=== PATIENT | male | born 1970 | race Caucasian/White ===

== ENCOUNTER → 2019-11-20 | Outpatient (CLI) | payer BC ==
[~2019-11-20] MED LIST: BISO5TAB8 PO
--- NOTE | 2019-11-20 20:37 | PAIN ---
DATE OF SERVICE: 11/20/2019 INITIAL CONSULTATION FOR PAIN CLINIC CHIEF COMPLAINT: Low back and right lower extremity pain. HISTORY OF PRESENT ILLNESS: This is a 49-year-old male who presents with history of pain in the low back, right lower extremity for about 4 months, occurring fairly suddenly, but not a result of any specific injury or action that he is aware of. The patient reports it has been in the low back, right posterior gluteus, posterolateral thigh, lateral anterior thigh, anterior medial thigh, medial knee and into the medial and lateral lower leg on the right side only. The patient reports it is across the low back at times and mostly just in the leg. The patient reports it is shooting in the right leg, tingling with pins and needles as well into the thigh, but not into the foot. The patient reports it is worse with walking, standing, changing positions, sitting for prolonged periods. It is waking him from sleep about 4-5 times a night, does not affect his bowel or bladder control, but does affect his ability to walk significantly. He is not using any assistive devices currently, but has used a cane in the recent past when it was worse, at work. The patient has been taking Aleve frequently, the patient reports, sometimes 5-6 times a day, but has not had any other current therapies, physical therapies, chiropractic treatments or other modalities of treatment for the pain at this time. The patient did have MRI scan of the lumbar spine showing diffuse disk bulges at L4-L5 and L5-S1 with mild degenerative changes, minimal disk bulge and mild facet hypertrophy. L3-L4, L4-L5 shows diffuse disk bulge, [id number] facet ligamentum flavum hypertrophy with minimal left foraminal narrowing and diffuse disk bulge, L5-S1 with mild bilateral foraminal narrowing. The patient rates his disability range 0-10, 10 being the worst, is an 8 with family home responsibilities, recreation, social activity; 9 with occupation and sexual behavior; 6 with self-care and 8 with life support activities. PAST MEDICAL HISTORY: Significant for hearing loss and arthritis. PREVIOUS SURGERY: Include a left knee surgery for reconstruction, right knee surgery and tonsillectomy. CURRENT MEDICATIONS: Include bisoprolol daily and naproxen. ALLERGIES: The patient has no known drug allergies. FAMILY HISTORY: Significant for no major medical problems or conditions except for some low back pain in the patient's father and lumbar surgery in the patient's father. SOCIAL HISTORY: The patient does not drink alcohol, does not smoke, does use chewing tobacco for 30+ years. Does not use any illegal, illicit or recreational drugs. He is , lives with his spouse. Lives locally in [place], [place]. Works for the local [employer]. REVIEW OF SYSTEMS: The patient's review of systems is positive for those items mentioned in history of present illness. All systems reviewed and otherwise negative. It is complete, full and well documented on the patient's chart. PHYSICAL EXAMINATION: VITAL SIGNS: The patient's blood pressure is 132/103, pulse 80, respirations 18, temperature 98.3 degrees Fahrenheit, height 6 feet 2 inches, weight is 270 pounds. GENERAL: The patient is awake, alert, oriented, appropriate, very pleasant demeanor. HEENT: Normocephalic, atraumatic. Extraocular movements are intact and symmetrical. Oral cavity: Mucous membranes moist and pink. Dentition is intact. NECK: Shows anterior throat supple without palpable lymphadenopathy noted. Swallow reflex symmetrical. CHEST: Shows normal on inspection. Breath sounds are clear to auscultation bilaterally. HEART: Shows S1, S2 clear. No murmurs auscultated. ABDOMEN: Soft, nontender, nondistended. No palpable organomegaly is noted. No rebound or guarding demonstrated. BACK: Shows spine grossly in the midline. Normal appearing thoracic kyphosis, some minor flattening of lumbar lordotic curvature. Lumbar paraspinous muscle shows symmetrical on inspection, on palpation shows some moderate tenderness diffusely bilaterally going diffusely without significant radiation. The patient has good rotational motion of lumbar spine, both laterally as well as extension and flexion without significant difficulty. No tenderness over the spinous processes, sacrum or sacroiliac regions. The patient shows good rotational motion laterally as well as extension and flexion without difficulty. EXTREMITIES: Lower extremities show deep tendon reflexes 2+ in the patellar, 1+ tendo-calcaneus tendons. Motor exam is strong with 5/5 dorsiflexion, extension, quadriceps and hamstring flexion on the right and 4/5 with quadriceps and hamstring flexion on the left, but 5/5 quadriceps dorsiflexion, extension on the left. Peripheral pulses are 1+ posterior tibia. No peripheral edema is noted bilaterally. The patient is able to stand, stand on his toes without significant difficulty or loss of balance, walks with normal appearing gait, does not appear to favor the right or left lower extremity significantly for short distance in the office, not using any assistive devices to ambulate as well. SKIN: The patient's skin shows warm and dry, good turgor. No edema. No sores, rashes or bruising throughout. IMPRESSION: 1. This is a 49-year-old male with approximately 4-month history of low back and right lower extremity pain in a radicular fashion. 2. MRI scan of lumbar spine as noted. 3. History of arthritis. PLAN: Options were discussed with the patient including conservative medical management, physical therapy, interventional techniques. He would like to pursue interventional techniques. We discussed a lumbar epidural steroid using description as well as anatomical models to describe the procedure. The patient will wait for his work schedule to be more amenable to, as he is going to work right after his visit today where he does not have to attend work right after the injection. We will try Medrol Dosepak in the meantime. The patient was given instruction as well as side effects to be aware of with the medication. The patient will follow up in approximately 2 weeks as scheduled for lumbar epidural steroid injection at that time. BHARAT PARRISH MD DR: RAJ/orquidea JOB#: [id number] / [id number] ADELSO Ham MD
== END | disposition home or self-care (01) ==
LOC: PNCL 12:25
PROVIDERS: ATTEND Anesthesiology
DX: M54.16 Radiculopathy, lumbar region (principal); M19.90 Unspecified osteoarthritis, unspecified site; Z72.0 Tobacco use
CPT/HCPCS: G0463

== ENCOUNTER → 2019-12-04 | Outpatient (CLI) | payer BC ==
[~2019-12-04] MED LIST changes: +BUPR150T8 PO; +IOHEXOL 180 MG/ML 10 ML VIAL. ONE; +methylPREDNISolone ACETATE 40 MG/ML VIAL. ONE; +methylPREDNISolone ACETATE 80 MG/ML VIAL. ONE
--- NOTE | 2019-12-05 02:19 | PAIN ---
DATE OF SERVICE: 12/04/2019 PROGRESS NOTE FOR PAIN CLINIC DIAGNOSIS: Lumbar radiculopathy with lumbar degenerative disk disease. HISTORY OF PRESENT ILLNESS: The patient is a 49-year-old male who returns for followup status post initial evaluation and the patient returns today wishing to proceed with the procedure. The patient was working after his last visit and we waited until he was able to be off work and not traveling today and he returns today with still significant pain in low back, right lower extremity significantly better with the Medrol Dosepak but only for the first few days. The patient reports his pain is now a 10 on a scale of 10 at its worst over the past week, 8 on average, 7 at its least and is a 7 today. The patient reports it is sharp and tingling, burning, radiating to the right lower extremity, lateral thigh, anterior thigh, medial thigh, groin and medial lower leg as well as across the low back. The patient reports no new motor or sensory deficits, no new bowel or bladder incontinence or other complaints. PHYSICAL EXAMINATION: VITAL SIGNS: The patient's blood pressure 142/97, pulse 70, respirations 16, temperature 98.0 degrees Fahrenheit, height is 6 feet 3 inches and weight is 268 pounds. GENERAL: The patient is awake, alert, oriented, appropriate, very pleasant demeanor. HEENT: Head shows normocephalic, atraumatic. Extraocular movements are intact and symmetrical. Oral cavity: Mucous membranes moist and pink. Dentition is intact. NECK: Shows anterior throat supple without palpable lymphadenopathy noted. Swallow reflex symmetrical. CHEST: Shows normal on inspection. Breath sounds clear to auscultation bilaterally. HEART: Shows S1, S2 clear. No murmurs auscultated. ABDOMEN: Soft, nontender, nondistended. No palpable organomegaly is noted. No rebound or guarding demonstrated. BACK: Shows spine grossly in the midline. Normal appearing thoracic kyphosis and lumbar lordotic curvature. Lumbar paraspinous muscle shows symmetrical on inspection, on palpation shows some moderate tenderness diffusely bilaterally going diffusely without significant radiation in the low lumbar distribution. The patient shows full rotational motion of lumbar spine laterally as well as extension and flexion without significant pain reported. EXTREMITIES: Lower extremities show deep tendon reflexes 2+ in the patellar, 1+ tendo-calcaneus tendons. Motor exam is approximately 4 on a scale of 5 with right dorsiflexion, 5/5 on the left. Peripheral pulses are 1+ posterior tibia. No peripheral edema. Options were discussed with the patient. The patient's old chart was reviewed as his current medication regimen updated. Current review of systems updated today as well. We will proceed with a lumbar epidural steroid injection today with the first in this series with fluoroscopic guidance. Risks were again discussed including, but not limited to bleeding, infection, possibility of epidural hematoma, subsequent neurological compromise, dural puncture, headaches, spinal cord and/or nerve damage, side effects of steroid medication and poor results regarding pain control. The patient understands and wished to proceed. The patient will return to clinic in approximately 2 weeks for followup. He was counseled on return appointment, activity level and side effects to be aware of. DIAGNOSIS: Lumbar radiculopathy with lumbar degenerative disk disease. PROCEDURE: Lumbar epidural steroid injection, translaminar approach L4-L5 level using C-arm fluoroscopic guidance under sterile prep and drape using local anesthetic. MEDICATION INJECTED: A total of 120 mg Depo-Medrol plus 10 mL of preservative-free normal saline and 2 mL of contrast. CONDITION AT DISCHARGE: Stable. The patient tolerated procedure well, had no complications. BHARAT PARRISH MD DR: RAJ/orquidea JOB#: [id number] / [id number]
== END ==
LOC: PNCL 09:02
PROVIDERS: ATTEND Anesthesiology
DX: M51.16 Intervertebral disc disorders with radiculopathy, lumbar region (principal)
CPT/HCPCS: 62323; J1030; J1040; Q9965

== ENCOUNTER → 2019-12-18 | Outpatient (CLI) | payer BC ==
[~2019-12-18] MED LIST changes: -IOHEXOL 180 MG/ML 10 ML VIAL. ONE; -methylPREDNISolone ACETATE 40 MG/ML VIAL. ONE; -methylPREDNISolone ACETATE 80 MG/ML VIAL. ONE
--- NOTE | 2019-12-18 12:19 | PAIN ---
DATE OF SERVICE: PROGRESS NOTE FOR PAIN CLINIC DIAGNOSES: Lumbar radiculopathy with lumbar degenerative disk disease. HISTORY OF PRESENT ILLNESS: The patient is a 49-year-old male who returns for followup status post lumbar epidural steroid injection x 1. On 12/04/2019, the patient reports he did very well, 100% improved in the low back and right lower extremity pain and very minimal pain in the leg or the back. The patient reports he rates his pain as a 0 on a scale of 10 on average, worst at least over the past several weeks. The patient is very pleased with his progress and increased in activity with greater distance walking, doing work activities, household activities, traveling with greater ease and comfort. The patient is very pleased. He is sleeping better at night, does not awaking from sleep at night. The patient reports no new motor or sensory deficits, has some bit of tingling and burning in the leg, but only very minimal and only lasting for a very short period of time, less than a minute when he is first getting up for walking. The patient reports no other complaints. PHYSICAL EXAMINATION: VITAL SIGNS: The patient's blood pressure 146/103, pulse 83, respirations 18, temperature 97.7 degrees Fahrenheit, height is 6 feet 2 inches, weight is 273 pounds. GENERAL: The patient is awake, alert, oriented, appropriate, very pleasant demeanor. HEENT: Normocephalic, atraumatic. Extraocular movements are intact and symmetrical. Oral cavity: Mucous membranes moist and pink. Dentition is intact. NECK: Shows anterior throat supple without palpable lymphadenopathy noted. Swallow reflex symmetrical. CHEST: Shows normal on inspection. Breath sounds are clear bilaterally. HEART: Shows S1, S2 clear. No murmurs auscultated. ABDOMEN: Soft, nontender, nondistended. No palpable organomegaly is noted. BACK: Shows spine grossly in midline. Lumbar paraspinous muscle shows symmetrical on inspection, on palpation shows some mild tenderness, but only very minimal in the low lumbar distribution. Full rotational motion is demonstrated both laterally as well as extension and flexion of lumbar spine without difficulty or pain reported. No tenderness over the sacrum and sacroiliac regions or the spinous processes. EXTREMITIES: Lower extremities show deep tendon reflexes 2+ in patella, 1+ tendo calcaneus tendons. Motor exam is approximately 4 on a scale 5 on the right with dorsiflexion, extension, but 5/5 on the left. Quadriceps and hamstring flexion 5/5 and symmetrical. Options were discussed with the patient. The patient's old chart was reviewed. His current medication regimen updated. Current review of systems updated today as well. We will hold on any further injections at this time as the patient is doing quite a bit better, encouraged him to increase his activity as tolerated, maintain stretching and strengthening exercises and daily activities. The patient will return to clinic at this time on as needed basis. BHARAT PARRISH MD DR: RAJ/orquidea JOB#: [id number] / [id number]
== END | disposition home or self-care (01) ==
LOC: PNCL 07:59
PROVIDERS: ATTEND Anesthesiology
DX: M51.16 Intervertebral disc disorders with radiculopathy, lumbar region (principal)
CPT/HCPCS: G0463

== ENCOUNTER → 2019-12-29 | Outpatient (CLI) | payer BC ==
[~2019-12-29] MED LIST changes: +IOHEXOL 180 MG/ML 10 ML VIAL. ONE; +methylPREDNISolone ACETATE 40 MG/ML VIAL. ONE; +methylPREDNISolone ACETATE 80 MG/ML VIAL. ONE
--- NOTE | 2019-12-29 12:40 | PAIN ---
DATE OF SERVICE: PROGRESS NOTE FOR PAIN CLINIC DIAGNOSES: Lumbar radiculopathy, lumbar degenerative disk disease. HISTORY OF PRESENT ILLNESS: The patient is a 49-year-old male who returns for followup status post lumbar epidural steroid injection x 1. The patient reports 100% improvement. We have seen him back earlier this month with 100% improvement and the patient was doing very well. The patient reports that since that time, he has been helping his mother move some large items on the digging area post-hole or stump out and has had increased pain in the low back, right lower extremity, returning not nearly to baseline, but it has been returning in the low back and the right leg with some numbness and tingling, especially on the right kneecap and anterior thigh. The patient reports it is across the low back as well, but always on the right side. The patient reports it is an 8-9 on a scale of 10, at its worst over the past week, 5-8 on average, 5 at its least and is a 5 today. The patient reports aching, sharp, burning in the back and the right leg, tingling and numbness in the knee; however, it is not keeping him from sleep at night, most nights, does not awaking at some night. The patient reports no new motor or sensory deficits, no new bowel or bladder incontinence. PHYSICAL EXAMINATION: VITAL SIGNS: The patient's blood pressure 151/112, pulse 90, respirations 18, temperature 98.5 degrees Fahrenheit, weight is 265 pounds. GENERAL: The patient is awake, alert, oriented, appropriate, very pleasant demeanor. HEENT: Shows normocephalic, atraumatic. Extraocular movements are intact and symmetrical. Oral cavity: Mucous membranes moist and pink. Dentition is intact. NECK: Shows anterior throat supple without palpable lymphadenopathy noted. Swallow reflex symmetrical. CHEST: Normal inspection. Breath sounds clear to auscultation bilaterally. HEART: Shows S1, S2 clear. No murmurs auscultated. ABDOMEN: Soft, nontender, nondistended. BACK: Shows spine grossly in the midline. Lumbar paraspinous muscle shows symmetrical with inspection, with palpation shows some very mild tenderness in the low lumbar distribution only without radiation. The patient has full rotational motion of lumbar spine, both laterally as well as extension and flexion without difficulty. EXTREMITIES: Lower extremities show deep tendon reflexes 2+ in the patellar, 1+ tendo calcaneus tendons. Motor exam is approximately 4 on a scale of 5 on the right with dorsiflexion and extension, 5/5 on the left. Peripheral pulses are 1+ posterior tibia. No peripheral edema is noted bilaterally. Options were discussed with the patient. The patient's old chart was reviewed as his current medication regimen updated. Current review of systems updated today as well. We will proceed with a second in the series of lumbar epidural steroid injection today with fluoroscopic guidance. Risks were again discussed including, but not limited to bleeding, infection, possibility of epidural hematoma, subsequent neurological compromise, dural puncture, headaches, spinal cord and/or nerve damage, side effects of steroid medication and poor results regarding pain control. The patient understands and wished to proceed. The patient will return to clinic in approximately 2 weeks for followup. He was counseled on return appointment, activity level and side effects to be aware of. DIAGNOSES: Lumbar radiculopathy, lumbar degenerative disk disease. PROCEDURE: Lumbar epidural steroid injection, translaminar approach at L4-L5 level using C-arm fluoroscopic guidance under sterile prep and drape using local anesthetic. MEDICATION INJECTED: A total of 120 mg Depo-Medrol plus 10 mL of preservative-free normal saline and 2 mL of contrast. CONDITION AT DISCHARGE: Stable. The patient tolerated procedure well, had no complications. BHARAT PARRISH MD DR: RAJ/orquidea JOB#: [id number] / [id number]
== END ==
LOC: PNCL 09:47
PROVIDERS: ATTEND Anesthesiology
DX: M51.16 Intervertebral disc disorders with radiculopathy, lumbar region (principal)
CPT/HCPCS: 62323; J1030; J1040; Q9965

== ENCOUNTER → 2020-06-02 | Outpatient (CLI) | payer BC ==
--- NOTE | 2020-06-02 08:25 | PDOC ---
Progress Note - Pain Clinic Date of Service: DOS: DATE: 06/02/20 TIME: 08:22 Diagnosis: Dx: Lumbar radiculopathy with lumbar degenerative disc disease History or Present Illness: HPI: 49-year-old male returns follow-up status post lumbar epidural to injections x2 last seen December 29, 2019. Patient reports about 80 to 90% improvement after the last injection patient reports no new motor or sensory deficits no new bowel or bladder con's with the pain is returning down the low back and right lower extremity posterior gluteus posterior thigh lateral thigh anterior thigh medial thigh medial lower leg with walking standing changing positions. Patient re ports is aching and sharp shooting burning stabbing severe at times and unbearable at times with weightbearing better with sitting or laying down generally does not awaken her from sleep at night. Patient worst pain is at 8- 10 on scale of 10 is worst 8-10 on average and a 7-8 at its least as an 8 today. Work no new motor or sensory deficits no new bowel or bladder incontinence or other complaints. Physical Exam: VS: Blood pressure 147/114 pulse 84 respiration 16 temperature 97.9 F height is 6 foot 3 inches weight is 26 7 pounds PE: PHYSICAL EXAMINATION: GENERAL: The patient is awake, alert, oriented, appropriate, very pleasant demeanor HEENT: Shows normocephalic, atraumatic. Extraocular movements are intact and symmetrical. Oral cavity: Mucous membranes moist and pink. Dentition is intact. NECK: Shows anterior throat supple without palpable lymphadenopathy noted. Swallow reflex symmetrical. CHEST: Shows normal on inspection. Breath sounds are clear bilaterally, no rales rhonchi or wheezes auscultated. HEART: Shows S1, S2 clear. No murmurs auscultated. ABDOMEN: Soft, nontender, nondistended. No palpable organomegaly is noted. No rebound or guarding demonstrated. BACK: Shows spine grossly in the midline. Normal-appearing cervical lordotic curvature. There is slightly increased thoracic kyphosis, some minor flattening of the lumbar lordotic curvature. Lumbar paraspinous muscles show symmetrical on inspection, on palpation shows some moderate tenderness diffusely throughout the upper, middle and lower distribution of the paraspinous muscles bilaterally without specific trigger points, without radiation of pain. The patient has good rotational motion of the lumbar spine, both laterally as well as extension and flexion without significant difficulty. No tenderness over the spinous processes, sacrum or sacroiliac regions. EXTREMITIES: Lower extremities show deep tendon reflexes 2+ in the patellar and tendo calcaneus tendons. Motor exam is 5 on a scale of 5 with right dorsiflexion, extension, quadriceps and hamstring flexion and 5/5 on the left. Peripheral pulses are 1+ posterior tibial. No peripheral edema is noted bilaterally. Lower extremities are warm and dry to touch, equal in color and appearance. SKIN: Shows warm and dry, good turgor. No edema. No sores, rashes or bruising throughout. Procedure: Procedure: Options were discussed with the patient. Patient chart was reviewed his current medication regimen updated current review of systems updated today as well. We will proceed with a third in a series lumbar epidural steroid injection with fluoroscopic guidance risk were again discussed including but not limited to bleeding infection possibility of epidural hematoma subsequent neurological compromise dural puncture headache spinal cord and or nerve damage side effects of steroid medication and portals chronic pain control. Patient understands wished to proceed. Return to clinic in approximate 2 weeks for follow-up was counseled as to return appointment activity level and side effects be aware of. Medication Injected: Med Injected: Procedure is lumbar epidural steroid injection under local anesthetic using sterile prep and drape at the L4-5 level using C-arm fluoroscopic guidance in both AP and lateral views medications injected is 120 mg Depo-Medrol + 10 mL preservative-free normal saline and 2 mL for contrast- condition at discharge is stable patient tolerated procedure well had no complications. Condition at Discharge: Condition at Discharge: Condition at discharge stable patient tolerated procedure well had no complications BHARAT PARRISH MD Jun 02, 2020 08:25
== END | disposition home or self-care (01) ==
LOC: PNCL 07:28
PROVIDERS: ATTEND Anesthesiology
DX: M51.16 Intervertebral disc disorders with radiculopathy, lumbar region (principal)
CPT/HCPCS: 62323; J1030; J1040; Q9965

== ENCOUNTER → 2020-09-16 | Outpatient (CLI) | payer BC ==
--- NOTE | 2020-09-16 08:18 | PDOC ---
Progress Note - Pain Clinic Date of Service: DOS: DATE: 09/16/20 TIME: 08:15 Diagnosis: Dx: Lumbar radiculopathy with lumbar degenerative disc disease History or Present Illness: HPI: 50-year-old male returns follow-up status post lumbar epidural steroid injections x3. Patient last seen June 02, 2020 patient did very well about 75 to 80% improvement for several weeks following the injection. Patient reports pain is been returning now in the low back and right lower extremity posterior gluteus posterior thigh lateral thigh anterior thigh anterior medial thigh medial lower leg as well patient reports initially was doing much better with distance walking doing household activities working with greater ease and comfort travel with greater ease now reports the pain is returning in the low back and right leg described as aching sharp shooting in the leg burning in the low back can be severe and unbearable at times with extended walking and standing. Patient reports it generally does not awaken her from sleep at night better with sitting or laying down patient reports his pain is a 10 on scale 10 is worse over the past week 8 on average 8 at its least and is a 9 today. Reports no new motor or sensory deficits no new bowel or bladder con's or other complaints. Physical Exam: VS: Blood pressure is 160/107 pulse is 77 respirations are 16 temperature is 98.3 F weight is 277 pounds PE: PHYSICAL EXAMINATION: GENERAL: The patient is awake, alert, oriented, appropriate, very pleasant demeanor HEENT: Shows normocephalic, atraumatic. Extraocular movements are intact and symmetrical. Oral cavity: Mucous membranes moist and pink. NECK: Shows anterior throat supple without palpable lymphadenopathy noted. Swallow reflex symmetrical. CHEST: Shows normal on inspection. Breath sounds are clear bilaterally, no rales rhonchi wheezes auscultated. HEART: Shows S1, S2 clear. No murmurs auscultated. ABDOMEN: Soft, nontender, nondistended, obese. No palpable organomegaly is noted. No rebound or guarding demonstrated. BACK: Shows spine grossly in the midline. Normal-appearing cervical lordotic curvature. There is slightly increased thoracic kyphosis, some minor flattening of the lumbar lordotic curvature. Lumbar paraspinous muscles show symmetrical on inspection, on palpation shows some moderate tenderness diffusely throughout the upper, middle and lower distribution of the paraspinous muscles, but without specific trigger points, without radiation of pain. The patient has good rotational motion of the lumbar spine, both laterally as well as extension and flexion without significant difficulty. No tenderness over the spinous processes, sacrum or sacroiliac regions. EXTREMITIES: Lower extremities show deep tendon reflexes 2+ in the patellar and tendo calcaneus tendons. Motor exam is 4 on a scale of 5 with right dorsiflexion, extension, quadriceps and hamstring flexion and 5/5 on the left. Peripheral pulses are 1+ posterior tibial. No peripheral edema is noted bilaterally. Lower extremities are warm and dry to touch, equal in color and appearance. SKIN: Shows warm and dry, good turgor. No edema. No sores, rashes or bruising throughout. Procedure: Procedure: Options were discussed with the patient. Patient will chart reviews his current medication regimen updated current review of systems updated today as well. We will proceed with a lumbar epidural steroid injection today with fluoroscopic guidance. Risks were discussed including but not limited to: Bleeding, infection, possibility of epidural hematoma and subsequent neurological compromise, dural puncture, headaches, spinal cord and/or nerve damage, side effects of steroid medication, and poor results regarding pain control. Patient understands wished to proceed. Patient will return to the clinic in approximate 2 weeks for follow-up was counseled as to return appointment activity level and side effects to be aware of. Medication Injected: Med Injected: Procedure is lumbar epidural steroid injection under local anesthetic using sterile prep and drape at the L4-5 level using C-arm fluoroscopic guidance in both AP and lateral views medications injected is 120 mg Depo-Medrol + 10 mL preservative-free normal saline and 2 mL contrast- condition at discharge is stable patient tolerated procedure well had no complications. Condition at Discharge: Condition at Discharge: Edition at discharge stable, patient tolerated seizure well and had no comp lications. BHARAT PARRISH MD Sep 16, 2020 08:18
== END | disposition home or self-care (01) ==
LOC: PNCL 07:28
PROVIDERS: ATTEND Anesthesiology
DX: M51.16 Intervertebral disc disorders with radiculopathy, lumbar region (principal); Z79.899 Other long term (current) drug therapy
CPT/HCPCS: 62323; J1030; J1040; Q9965